=== PATIENT | male | born 1950 | race Hispanic/Latino ===

== ENCOUNTER 2018-05-06 15:17 | Outpatient (CLI) | payer BC, MEDICARE ==
--- NOTE | 2018-05-06 16:54 | MRI ---
MRI CERVICAL SPINE 05/06/18 HISTORY: Left arm and hand numbness for eight months. Multiplanar and multisequence noncontrast enhanced MRI images cervical spine obtained. Images demonstrate areas of signal cord abnormality seen at the C4-5 spinal cord. C1-2: Unremarkable. C2-3: There is a broad based central disc bulge minimally but not significantly compressing the theca l sac. The neural foramen are patent. C3-4: There is a broad based central disc protrusion resulting in moderate degree of thecal sac compr ession. Mild cord compression is also seen. There is moderate bilateral neural foraminal narrowing du e to uncovertebral osteophyte hypertrophy. C4-5: There is a central disc protrusion compressing the thecal sac resulting in moderate to severe t hecal sac and cord compression. Signal abnormality seen compatible with myelomalacia at the C4-5 cord . Patient has overall central canal stenosis extending from C3 down to the C7 level. There is moderat e to severe bilateral C4-5 neural foraminal narrowing due to uncovertebral osteophyte hypertrophy. C5-6: Disc desiccation is seen. There is a broad central disc protrusion compressing the thecal sac a nd resulting in moderate degree of central spinal stenosis. There is mild right and moderate to sever e left C5-6 neural foraminal narrowing due to uncovertebral osteophyte hypertrophy. C6-7: There is some disc desiccation. There is a broad based central disc protrusion compressing the thecal sac resulting in mild to moderate central spinal stenosis. The right neural foramen is patent. There is moderate left C6-7 neural foraminal narrowing due to uncovertebral osteophyte hypertrophy. C7-T1: Unremarkable. IMPRESSION: Central canal stenosis with compression of the thecal sac most significant level appears to be the C4 -5 level with a broad based central disc protrusion and compression of the thecal sac and spinal cord . POS: [facility]
== END 2018-05-06 15:18 | disposition home or self-care (01) ==
LOC: SCSMRI 15:17
PROVIDERS: ATTEND Psychiatry & Neurology Neurology
DX: R20.2 Paresthesia of skin (principal); M48.02 Spinal stenosis, cervical region; M50.221 Other cervical disc displacement at C4-C5 level
CPT/HCPCS: 72141

== ENCOUNTER 2018-05-08 14:47 | Outpatient (CLI) | payer BC, MEDICARE ==
--- NOTE | 2018-05-08 15:28 | RAD ---
CERVICAL SPINE 2 VIEWS AP AND LATERAL STANDARD WITH FLEXION AND EXTENSION: HISTORY: N50.20. COMPARISON: None. FINDINGS: There is no acute fracture. There is moderate degenerative disk space narrowing at C6-7 with anterio r and posterior disk-osteophyte complex. In the neutral position, there is no significant listhesis. No significant translation with flexion or extension. IMPRESSION: No significant translation with flexion or extension. POS: [facility]
== END 2018-05-08 14:48 | disposition home or self-care (01) ==
LOC: SCSRAD 14:47
PROVIDERS: ATTEND Neurological Surgery
DX: M50.20 Other cervical disc displacement, unspecified cervical region (principal)
CPT/HCPCS: 72040

== ENCOUNTER 2018-05-20 10:00 | Outpatient (CLI) | payer BC, MEDICARE ==
--- NOTE | 2018-05-20 11:04 | RAD ---
CHEST TWO VIEWS: HISTORY: Z01.818 FINDINGS: The lungs are hypoinflated with vascular crowding. Linear opacities present in the left lung base ma y reflect atelectasis. No acute osseous abnormality. IMPRESSION: Lung hypoinflation with vascular crowding and mild bibasilar atelectasis. POS: [facility]
== END 2018-05-20 10:01 | disposition home or self-care (01) ==
LOC: SCSRAD 10:00
PROVIDERS: ATTEND Family Medicine
DX: Z01.818 Encounter for other preprocedural examination (principal); J98.11 Atelectasis; R91.8 Other nonspecific abnormal finding of lung field
CPT/HCPCS: 71046

== ENCOUNTER 2021-02-12 10:08 | Outpatient (CLI) | payer BC, MEDICARE | END 2021-02-12 10:09 | disposition home or self-care (01) | LOC: SCSRAD 10:08 | PROVIDERS: ATTEND Family Medicine | DX: B94.8 Sequelae of other specified infectious and parasitic diseases (principal); R91.8 Other nonspecific abnormal finding of lung field | CPT/HCPCS: 71046 ==